=== PATIENT | male | born 1945 | race Caucasian/White ===

== ENCOUNTER → 2017-01-29 | Outpatient (CLI) | payer OTHER ==
[~2017-01-29] MED LIST: BYSTOLIC5 MG PO; CATAPRES0.1 MG PO; CRESTOR10 MG PO; DIOVAN HCT 31 TABLE1 PO; FLOMAX0.4 MG PO; LO-DOSE ASPIRIN81 M1 PO
== END | disposition home or self-care (01) ==
DX: R13.13 Dysphagia, pharyngeal phase (principal); Z98.890 Other specified postprocedural states
CPT/HCPCS: 92611 GN